=== PATIENT | male | born 1970 | race Caucasian/White ===

== ENCOUNTER 2025-02-28 15:36 | Emergency (ER) | payer OTHER ==
[~2025-02-28] VITALS: Ht 182.9 cm; Wt 70.5 kg
[~2025-02-28 15:36] MED LIST: PERM59LI4 TP
[2025-02-28 15:55] VITALS: TEMP 97.8
--- NOTE | 2025-02-28 16:02 | ELECTROCARDIOGRAPH REPORT ---
[facility] Test Date: 2025-02-28 Test Time: 15:47:23 Pat Name: CHECO HERNADEZ Department: EMERGENCY ROOM Patient ID: 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 Reading MD: Dr. Fabricio Finch Measurements Intervals [place] Rate: 66 P: 87 OR: 155 QRS: 84 QRSD: 102 T: 51 QT: 391 QTc: 410 Interpretive Statements Sinus rhythm RSR' in V1 or V2, right VCD or RVH Electronically Signed On 02-28-2025 17:54:[address] Fabricio Finch Please click the below link to view image of tracing.
[2025-02-28 16:09] LABS: MEAN PLATELET VOLUME 7.1 FL (7.4-10.4); RED CELL DISTRIBUTION WIDTH 14.3 % (11.5-14.5)
--- NOTE | 2025-02-28 16:09 | Physician Documentation ---
History of Present Illness ~ Chief Complaint: Chest Pain Stated Complaint: CHEST PAIN/JAW PAIN Time Seen by MD: 17:00 OK to notify your PCP?: Yes Primary Medical Doctor: DR BENAVIDES Source: patient Mode of Arrival: POV Exam Limitations: no limitations HPI 54-year-old male presents for left-sided chest pain which started around 1:00 p.m. today and radiates up to his bilateral jaw. He states that he was at work and the pain spontaneous started. He describes it as a pressure. He has no known cardiac history. He has not taken any aspirin today. He adds that he does have a history of anxiety. Denies any exacerbating or alleviating symptoms. He also denies any nausea vomiting or radiating Medication Reconciliation Allergies: Coded Allergies: No Known Allergies (Unverified , 08/29/11) Scheduled Permethrin* (Nix*), 1 APPLIC TP ONCE Past Medical History Past Medical History: No Pertinent History Past Surgical History: no surgical history Alcohol Use: Rarely Drug Use: marijuana Lives In: Home Review of Systems All Other Systems at this time: Reviewed and Negative Physical Exam Vital Signs: RN Vital Signs have been reviewed: Yes, Temperature: 97.8, Source: Oral, Heart Rate: 64, Respiratory Rate: 17, BP: 121/72, Pulse Oximetry: 98, Weight: 70.450 Pulse Oximetry Reflects: adequate oxygenation Physical Exam General: Alert, no distress. Respiratory: No respiratory distress, equal chest rise and fall. Extremities: Normal range of motion, no deformity. Neurologic: Oriented x4. Skin: Normal color, warm and dry. Progress Results/Orders Results/Orders Vital Signs 02/28/25 02/28/25 15:55 17:02 Temp 97.8 Pulse 64 55 Resp 17 12 B/P (MAP) 121/72 115/73 (87) Pulse Ox 98 99 Laboratory Tests Test 02/28/25 15:54 White Blood Count 7.1 Red Blood Count 4.71 Hemoglobin 15.2 Hematocrit 45.3 Mean Corpuscular Volume 96.1 Mean Corpuscular Hemoglobin 32.3 H Mean Corpuscular Hemoglobin Concent 33.7 Red Cell Distribution Width 14.3 Platelet Count 337 Mean Platelet Volume 7.1 L Neutrophils (%) (Auto) 58.5 Lymphocytes (%) (Auto) 30.7 Monocytes (%) (Auto) 5.4 Eosinophils (%) (Auto) 4.5 Basophils (%) (Auto) 0.9 Neutrophils # (Auto) 4.1 Lymphocytes # (Auto) 2.2 Monocytes # (Auto) 0.4 Eosinophils # (Auto) 0.3 Basophils # (Auto) 0.1 CBC Comment Sodium Level 142 Potassium Level 4.2 Chloride Level 104 Carbon Dioxide Level 27.0 Anion Gap 11 Blood Urea Nitrogen 13 Creatinine 0.76 Estimated GFR/1.73 m2 > 90 BUN/Creatinine Ratio 17.1 Glucose Level 97 Calcium Level 8.8 Troponin I High Sensitivity < 4 L Troponin I High Sens Percent Delta Troponin I Hi Sens Absolute Change Pro-B-Type Natriuretic Peptide 46 Albumin 4.2 Chemistry Comments Medical Decision Making Findings 54-year-old male did not show any signs of acute cardiac events. His EKG was reassuring his x-ray was reassuring for no signs of cardiomegaly or pulmonary infiltrate. Laboratory values showed no signs of the infection or elevated troponins Suspect his chest wall pain is secondary to costochondritis and cigarette sm oking.. In addition anxiety can not be ruled out. However he does not present with any signs of an acute cardiac event at this time. Differential Dx:Considerations: Include: angina, aortic dissection, chest wall pain, cholelithiasis, CHF, costochondritis, esophageal reflux/spasm, gastritis, herpes zoster, myocardial infarction, pericarditis, pleuritis, pancreatitis, pneumonia, pneumothorax, pulmonary embolus, other Departure Disposition: 01 HOME / SELF CARE / HOMELESS Impression: Primary Impression: Tenderness of chest wall Condition: Stable Discharge Instructions: Nonspecific Chest Pain, Adult, Costochondritis, Chest Wall Pain Referrals: NO PRIMARY CARE PROVIDER (PCP) Additional Comment Medical Screen Exam This patient recieved a medical screening examination. After reviewing the individual's medical complaints with presenting symptoms and performing an appropriate physical examination, it was determined that no immediate life- threatening emergency medical condition is present. This individual is also not a women having contractions. Signature Scribe Signature: Attestation: Scribed for Juan Lang Np by Juan Garcia NP . 02/28/25 17:46 MELISSA ESCALONA Feb 28, 2025 16:09 JUAN LANG NP Feb 28, 2025 17:49
--- NOTE | 2025-02-28 16:24 | RADIOLOGY REPORT ---
CHEST RADIOGRAPH Indication: CP Technique: DI CHEST,SINGLE VIEW Comparison: None FINDINGS: The cardiac silhouette is unremarkable. The lungs demonstrate no pulmonary airspace consolidation. Th e pulmonary vasculature is unremarkable. There is no pleural effusion. There is no pneumothorax. IMPRESSION: No pulmonary airspace consolidation.
[2025-02-28 16:29] LABS: CREATININE 0.76 MG/DL (0.60-1.10); PRO BRAIN NATRIURETIC PEPTIDE 46 PG/ML (0-125); TOTAL CARBON DIOXIDE 27.0 MMOL/L (24-32); eCRCL 112 ML/MIN; eGFR > 90 ML/MIN
[2025-02-28 17:02] VITALS: BP 115/73; PULSE 55; RESP 12; O2SAT 99
== END 2025-02-28 18:05 | disposition home or self-care (01) ==
LOC: ER 15:37
DX: R07.89 Other chest pain (principal); F12.90 Cannabis use, unspecified, uncomplicated; Z79.899 Other long term (current) drug therapy
CPT/HCPCS: 36415; 71045; 80048; 83880; 84484; 85025; 93005; 99285

== ENCOUNTER 2025-04-24 15:16 | Emergency (ER) | payer BC ==
[~2025-04-24] VITALS: Ht 182.9 cm; Wt 73.6 kg
[2025-04-24] MEDS ORDERED: CYCL-1 PO (16:37)
--- NOTE | 2025-04-24 16:40 | Physician Documentation ---
History of Present Illness ~ Chief Complaint: Back Pain Stated Complaint: FLANK PAIN Time Seen by MD: 16:23 OK to notify your PCP?: Yes Primary Medical Doctor: DR BENAVIDES Source: patient Mode of Arrival: POV Exam Limitations: no limitations HPI 54-year-old male presents for intermittent localized low back pain to the right. He reports that it only occurs when he moves in certain positions. This started 3 days ago and he does not know what could have triggered it. 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 He denies any saddle anesthesia, loss of bowel or bladder. He denies any numbness or tingling or shooting pain down either leg. Medication Reconciliation Allergies: Coded Allergies: No Known Allergies (Unverified , 04/24/25) Scheduled Permethrin* (Nix*), 1 APPLIC TP ONCE Past Medical History Past Medical History: No Pertinent History Past Surgical History: no surgical history Alcohol Use: Rarely Drug Use: marijuana Lives In: Home Review of Systems All Other Systems at this time: Reviewed and Negative Physical Exam Physical Exam Vital Signs: RN Vital Signs have been reviewed: Yes, Temperature: 98.6, Source: Oral, Heart Rate: 67, Respiratory Rate: 18, BP: 103/58, Pulse Oximetry: 96, Weight: 73.600 Oxygen Flow Rate: 0 Pulse Oximetry Reflects: adequate oxygenation Physical Exam General: Alert, no apparent distress. HEENT: PERRL, EOMI, no injection, moist mucous membranes. Neck: Full range of motion. Respiratory: Lungs clear, no respiratory distress. Chest: No accessory muscle use. Cardiovascular: Regular rate and rhythm, no murmurs. Gastrointestinal: Soft, nontender, nondistended. Bowels sounds present. Back: No CVA tenderness, no midline tenderness of spine. No tenderness to palpation along lumbar sacral muscles but there does appear to be some tightness of the muscle on the right side. Negative straight leg raise test. Extremities: Normal range of motion, no deformity. Neurologic: Oriented x4. Psychiatric: Normal mood and affect. Skin: Normal color, warm and dry. No edema, no ecchymosis. Progress Results/Orders Reviewed/noted all lab results: Yes Results/Orders Vital Signs 04/24/25 15:41 Temp 98.6 Pulse 67 Resp 18 B/P (MAP) 103/58 Pulse Ox 96 O2 Flow Rate 0 Medical Decision Making Additional info obtained from: old records Findings He is complaining of intermittent low back pain when he moves certain directions. He does not have any radiculopathy into either leg. There are no signs of cauda equina. The pain was not reproducible on exam. On exam he did have some lumbosacral muscle spasm for which I gave some Flexeril and a prescription. He has been taking Tylenol and ibuprofen at home last doses were yesterday. I gave a Toradol injection while here in the department. We discussed the limitations of x-ray and that since this was not a traumatic injury is unlikely that he has a broken bone and he should follow up with his primary care provider for further workup and imaging if needed. We did discuss that sometimes low back pain can happen for weeks with repeat movements as it can take time to heal. He agrees to the plan. Differential Dx:Considerations: Include: AAA, Cholelithiasis, Fracture, Pancreatitis, Pyelonephritis, Renal infarction, Urinary obstruction, Urinary tract infection Differential Diagnosis Cauda equina syndrome, lumbar stenosis, lumbar disc herniation. Departure Disposition: 01 HOME / SELF CARE / HOMELESS Impression: Primary Impression: Low back pain Discharge Instructions: Acute Back Pain, Adult Additional Instructions: You can use Tylenol and/or ibuprofen for pain relief at home. Please try using a heating pad and you can use the Flexeril as needed for muscle spasms. Follow up with her primary care provider within the next week and return back here for any new or worsening symptoms. Referrals: NO PRIMARY CARE PROVIDER (PCP) Prescriptions Cyclobenzaprine* (Cyclobenzaprine*) 10 Mg Tablet 1 TAB PO Q8H for muscle spasms for 10 Days, #30 TAB 0 Refills Prov: ANY ESCALONA 04/24/25 Education Educated: Patient Educated regarding: diagnosis, treatment, prognosis, need for follow up Additional Comment Medical Screen Exam This patient recieved a medical screening examination. After reviewing the millie lamar's medical complaints with presenting symptoms and performing an appropriate physical examination, it was determined that no immediate life- threatening emergency medical condition is present. This individual is also not a women having contractions. Signature Scribe Signature: . Attestation: Scribed for Any Escalonap by Any Garcia NP . 04/24/25 16:36 Parts of this note were created using [employer] voice recognition software program. While efforts were made to correct any mistakes made by this voice recognition software program, nonsensical phrases may remain in this note. In addition, there may be errors and syntax, grammar, content and spelling. ANY ESCALONA KELLER MACHINE OPERATOR Apr 24, 2025 16:40
[2025-04-24] MEDS: ketorolac trometh 15mg/ml vial 15 MG/ML ML IM ONE (18:04)
[2025-04-24 18:07] VITALS: BP 150/98; PULSE 73; RESP 18; TEMP 98.6; O2SAT 99
== END 2025-04-24 18:09 | disposition home or self-care (01) ==
LOC: ER 15:16
DX: M54.50 Low back pain, unspecified (principal); F12.90 Cannabis use, unspecified, uncomplicated; Z79.899 Other long term (current) drug therapy
CPT/HCPCS: 96372; 99283; J1885